=== PATIENT | male | born 1975 | race Caucasian/White ===

== ENCOUNTER → 2020-10-24 | Outpatient (CLI) | payer MEDICAID | LOC: RAD 14:36 | DX: M25.511 Pain in right shoulder (principal) ==

== ENCOUNTER → 2020-11-28 | Outpatient (CLI) | payer MEDICAID | LOC: RAD 15:05 | DX: M25.461 Effusion, right knee (principal) ==

== ENCOUNTER 2020-12-01 10:07 | Outpatient (RCR) | payer MEDICAID | END 2021-03-01 | disposition still patient (30) | LOC: PT | DX: M25.511 Pain in right shoulder (principal) ==

== ENCOUNTER → 2021-04-16 | Outpatient (CLI) | payer MEDICAID | LOC: LAB 16:45 | DX: G89.29 Other chronic pain (principal) ==

== ENCOUNTER → 2021-11-30 | Outpatient (CLI) | payer MEDICAID | LOC: LAB 18:05 | DX: F19.11 Other psychoactive substance abuse, in remission (principal) ==

== ENCOUNTER → 2022-05-13 | Outpatient (CLI) | payer MEDICAID | LOC: RAD 05-06 08:00 | DX: M75.41 Impingement syndrome of right shoulder (principal); M67.813 Other specified disorders of tendon, right shoulder | CPT/HCPCS: A9585; Q9967 ==

== ENCOUNTER → 2023-08-27 | Outpatient (CLI) | payer MEDICAID | LOC: LAB 17:15 | DX: M79.674 Pain in right toe(s) (principal); R82.90 Unspecified abnormal findings in urine; F41.1 Generalized anxiety disorder ==